=== PATIENT | male | born 1990 | race African-American/Black ===

== ENCOUNTER 2023-01-26 14:51 | Emergency (ER) | payer OTHER ==
[2023-01-26 15:12] VITALS: BP 143/84; PULSE 85; RESP 16; TEMP 97.9; BMI 25.0
[2023-01-26] MEDS ORDERED: ACETAMINOPHEN 500 MG TABLET (FP) PO ONE (15:41)
[2023-01-26] MEDS ORDERED: ACETAMINOPHEN 500 MG TABLET (FP) ONE (15:46)
== END 2023-01-26 17:14 | disposition home or self-care (01) ==
LOC: JERFT 14:51
DX: M79.605 Pain in left leg (principal); M79.674 Pain in right toe(s); V49.40XA Driver injured in collision with unspecified motor vehicles in traffic accident, initial encounter
CPT/HCPCS: 73590-TC-LT-FY; 73660-TC-FY; 99284-25

== ENCOUNTER 2024-09-09 07:15 | Emergency (ER) | payer OTHER ==
[2024-09-09] MEDS ORDERED: ACETAMINOPHEN 500 MG TABLET (FP) ONE (07:29)
[2024-09-09] MEDS: ACETAMINOPHEN 500 MG TABLET (FP) PO ONE (07:30)
[2024-09-09 07:55] VITALS: RESP 16; BMI 26.4
[2024-09-09 08:31] VITALS: BP 128/87; PULSE 87; TEMP 100.2
[2024-09-09 09:55] LABS: THROAT:GRP A STREP NOT DETECTED (NOTDETECTED)
== END 2024-09-09 08:41 | disposition home or self-care (01) ==
LOC: FER 07:15
DX: J10.1 Influenza due to other identified influenza virus with other respiratory manifestations (principal); M79.10 Myalgia, unspecified site; R05.9 Cough, unspecified; R50.9 Fever, unspecified; R00.0 Tachycardia, unspecified; Z20.822 Contact with and (suspected) exposure to COVID-19
CPT/HCPCS: 0241U-QW; 87651; 99283-25

== ENCOUNTER 2025-06-21 18:16 | Emergency (ER) | payer OTHER ==
[2025-06-21 18:29] VITALS: BP 124/88; PULSE 115; RESP 15; TEMP 98.8; BMI 25.7
[2025-06-21] MEDS ORDERED: ACETAMINOPHEN 500 MG TABLET (FP) ONE (18:50)
[2025-06-21] MEDS ORDERED: AMOXICILLIN 250 MG CAPSULE ONE (18:51)
[2025-06-21] MEDS: ACETAMINOPHEN 500 MG TABLET (FP) PO ONE (18:55)
[2025-06-21] MEDS: AMOXICILLIN 500 MG CAPSULE (FP) PO ONE (18:56)
[2025-06-21 20:33] LABS: THROAT:GRP A STREP NOT DETECTED (NOTDETECTED)
[2025-06-21] MEDS ORDERED: AMOX TR/POT CLAV 875MG/125MG TABLETS (FP) ONE (21:45)
== END 2025-06-21 18:59 | disposition home or self-care (01) ==
LOC: FER 18:16
DX: J04.0 Acute laryngitis (principal); J02.9 Acute pharyngitis, unspecified
CPT/HCPCS: 87637-QW; 87651; 99283-25